=== PATIENT | male | born 1935 | race Caucasian/White ===

== ENCOUNTER 2018-05-16 13:36 | Emergency (ER) | payer OTHER ==
[~2018-05-16] VITALS: Ht 185.4 cm; Wt 104.3 kg
[~2018-05-16 13:36] MED LIST: ASPI-1153 PO; ATOR40TA68 PO; CARV25TA55 PO; CHOL20009 PO; CYAN250010 PO; HYDR-3698 PO; LEVO137T20 PO; LISI-217 PO; TAMS-11 PO; WARF5TAB2 PO
[2018-05-16 13:46] VITALS: BP_SYST 135
[2018-05-16 15:32] LABS: BASOPHILS # (AUTO) 0.1 K/uL (0.0-0.2); BASOPHILS % (AUTO) 1.1 % (0.0-2.0); EOSINOPHILS # (AUTO) 0.2 K/uL (0.0-0.4); EOSINOPHILS % (AUTO) 3.3 % (0.0-4.0); HEMATOCRIT 36.9 % (36-54); LYMPHOCYTES # (AUTO) 1.2 K/uL (1.0-5.5); LYMPHOCYTES % (AUTO) 16.7 % (20.5-51.5); MEAN CORPUSCULAR HEMOGLOBIN 32 pg (27-31); MEAN CORPUSCULAR HGB CONC 33 % (32-36); MEAN CORPUSCULAR VOLUME 99 fL (79.0-98.0); MONOCYTES # (AUTO) 0.7 K/uL (0.0-1.0); MONOCYTES % (AUTO) 9.7 % (1.7-9.3); NEUTROPHILS # (AUTO) 4.9 K/uL (1.8-7.7); NEUTROPHILS % (AUTO) 69.2 % (40.0-70.0); PLATELET COUNT (AUTO) 250 K/uL (130-430); RED BLOOD CELL COUNT(AUTO) 3.72 MIL/uL (4.2-6.2); RED CELL DISTRIBUTION WIDTH 13.6 % (9.0-15.0); WHITE BLOOD COUNT (AUTO) 7.1 K/uL (4.8-10.8)
[2018-05-16 15:39] LABS: ANION GAP 4 (5-15); CALCIUM 9.5 mg/dL (8.4-11.0); CHLORIDE 109 mmol/L (98-107); CREATININE 1.65 mg/dL (0.55-1.30); GLUCOSE 83 mg/dL (70-99); POTASSIUM 4.1 mmol/L (3.5-5.1); SODIUM SERUM 143 mmol/L (136-145); UREA NITROGEN, BLOOD 32 mg/dL (8-21)
[2018-05-16 15:41] LABS: PROTHROMBIN TIME 10.4 SECS (9.5-12.5)
[2018-05-16 15:44] LABS: ALANINE AMINOTRANSFERASE 25 U/L (12-78); ALBUMIN 3.4 g/dL (3.4-4.8); ASPARTATE AMINOTRANSFERASE 19 U/L (10-37); TOTAL BILIRUBIN 0.4 mg/dL (0.0-1.0)
[2018-05-16 17:16] VITALS: BP_SYST 147
== END 2018-05-16 17:16 | disposition home or self-care (01) ==
LOC: SED 13:36
DX: L03.116 Cellulitis of left lower limb (principal); R60.9 Edema, unspecified
CPT/HCPCS: 36415; 36600; 80053; 82803-TC; 83880; 85025; 85379; 85610-TC; 93971; 99285

== ENCOUNTER 2022-04-04 10:31 | Observation (INO) | payer OTHER ==
[~2022-04-04] VITALS: Ht 182.9 cm; Wt 108.9 kg
[~2022-04-04 10:31] MED LIST changes: -ASPI-1153 PO; +ASPI-1393 PO
[2022-04-04 10:38] VITALS: BP_SYST 126
--- NOTE | 2022-04-04 11:14 | NUR ---
RECEIVED PT FROM BRIAN WILLIAMSON. PT HAS BLE EDEMA X10 DAYS. RESP E/U. ON R/A. NO COUGH OR SOB NOTED. LUNG SOUNDS DIMINISHED BILATERALLY. 02 SAT 96%. DENIES C/P, PRESSURE, PALPITATIONS. ABDOMEN SOFT, NONTENDER, NONDISTENDED. DENIES N/V/D/C. DISTAL PULSES NORMAL, BLE 2+ EDEMA NOTED. SKIN WARM, INTACT. SIDERAILS UP X2.
[2022-04-04] MEDS ORDERED: FUROSEMIDE 100 MG/10 ML VIAL IVP ONE (11:30)
--- NOTE | 2022-04-04 12:00 | NUR ---
IV CATH INITIATED TO [facility]. LABS OBTAINED.
[2022-04-04 12:04] LABS: BASOPHILS # (AUTO) 0.1 K/uL (0.0-0.2); BASOPHILS % (AUTO) 0.8 % (0.0-2.0); EOSINOPHILS # (AUTO) 0.2 K/uL (0.0-0.4); EOSINOPHILS % (AUTO) 3.3 % (0.0-4.0); HEMATOCRIT 32.3 % (36-54); HEMOGLOBIN 11.1 g/dL (14.0-18.0); LYMPHOCYTES # (AUTO) 1.5 K/uL (1.0-5.5); LYMPHOCYTES % (AUTO) 21.3 % (20.5-51.5); MEAN CORPUSCULAR HEMOGLOBIN 31 pg (27-31); MEAN CORPUSCULAR HGB CONC 34 % (32-36); MEAN CORPUSCULAR VOLUME 91 fL (79.0-98.0); MONOCYTES # (AUTO) 0.7 K/uL (0.0-1.0); MONOCYTES % (AUTO) 9.7 % (1.7-9.3); NEUTROPHILS # (AUTO) 4.6 K/uL (1.8-7.7); NEUTROPHILS % (AUTO) 64.9 % (40.0-70.0); PLATELET COUNT (AUTO) 225 K/uL (130-430); RED BLOOD CELL COUNT(AUTO) 3.53 MIL/uL (4.2-6.2); RED CELL DISTRIBUTION WIDTH 13.9 % (9.0-15.0)
[2022-04-04 12:23] LABS: ANION GAP 9 (5-15); CALCIUM 9.2 mg/dL (8.4-11.0); CHLORIDE 100 mmol/L (98-107); CREATININE 1.71 mg/dL (0.55-1.30); GLUCOSE 137 mg/dL (70-99); POTASSIUM 3.9 mmol/L (3.5-5.1); SODIUM SERUM 136 mmol/L (136-145); UREA NITROGEN, BLOOD 25 mg/dL (8-21)
[2022-04-04 12:24] LABS: PROTHROMBIN TIME 10.6 SECS (9.5-12.5)
[2022-04-04] MEDS ORDERED: FINA5TAB3 PO (12:30)
[2022-04-04] MEDS ORDERED: SULF500T60 PO (12:30)
[2022-04-04] MEDS ORDERED: APRE30TA2 PO (12:30)
[2022-04-04] MEDS ORDERED: AMIO200T66 PO (12:30)
[2022-04-04] MEDS ORDERED: CARV12.548 PO (12:30)
[2022-04-04] MEDS ORDERED: FURO-150 PO (12:30)
[2022-04-04] MEDS ORDERED: APIX5TAB PO (12:30)
[2022-04-04] MEDS ORDERED: ALLO100T PO (12:30)
[2022-04-04] MEDS ORDERED: LISI-209 PO (12:30)
[2022-04-04 12:31] LABS: ALANINE AMINOTRANSFERASE 18 U/L (12-78); ALBUMIN 3.4 g/dL (3.4-4.8); ASPARTATE AMINOTRANSFERASE 20 U/L (10-37); TOTAL BILIRUBIN 0.2 mg/dL (0.0-1.0)
[2022-04-04] MEDS ORDERED: SYN75 PO (12:31)
--- NOTE | 2022-04-04 13:10 | NUR ---
COVID-19 DOM SWAB OBTAINED, LABELED AND SENT TO THE LAB.
--- NOTE | 2022-04-04 13:28 | NUR ---
Admit bed requested Patient will be admitted to care of . Admitted to TELE OBS unit. Diagnosis CHF Inpatient (Yes or No) N Observation (Yes or No) Y Orientation concerns or request close to nursing station (Yes or No) NO Covid Status PENDING On vent or bipap N Isolation requirements N Needs a sitter N From Home (Yes or if No enter name of facility) Y Requires Dialysis (Yes or No) N Med Rec Completed (Yes of No) Y
[2022-04-04] MEDS ORDERED: cefTRIAXone 1 GM IVPB PREMIX 50 ML IV ONE (13:30)
--- NOTE | 2022-04-04 16:09 | NUR ---
CONSULTATION PAGED REASON FOR CONSULTATION:CONGESTIVE HEART FAILURE WAS CONSULT CALLED?Y -PERSON WHO WAS NOTIFIED:BETO CONSULTING PHYSICIAN:AYDE ZARCO [employer] SPECIALTY:CARDIO [employer] PHONE NUMBER:[phone] REQUESTING PHYSICIAN:ELEAZAR GEORGE
--- NOTE | 2022-04-04 16:10 | NUR ---
Patient will be admitted to care of BRIAN MELISSA. Admitted to TELE unit. Will go to room 129B. Belongings list completed. Complete and up to date summary report printed. SBAR report to be given at bedside with opportunity for questions.
[2022-04-04 16:14] VITALS: BP_SYST 136
[2022-04-04 20:00] VITALS: BP_SYST 101
[2022-04-04] MEDS: APIXABAN 2.5 MG TABLET PO SCH (20:50)
[2022-04-04] MEDS: FUROSEMIDE 20 MG TABLET PO SCH (20:52)
[2022-04-04] MEDS: CARVEDILOL 12.5 MG TABLET (COREG) PO SCH (20:55)
[2022-04-05 00:40] VITALS: BP_SYST 133
[2022-04-05 06:35] LABS: BASOPHILS # (AUTO) 0.1 K/uL (0.0-0.2); EOSINOPHILS # (AUTO) 0.2 K/uL (0.0-0.4); EOSINOPHILS % (AUTO) 3.3 % (0.0-4.0); HEMATOCRIT 33.5 % (36-54); HEMOGLOBIN 11.6 g/dL (14.0-18.0); LYMPHOCYTES # (AUTO) 1.6 K/uL (1.0-5.5); LYMPHOCYTES % (AUTO) 22.5 % (20.5-51.5); MEAN CORPUSCULAR HEMOGLOBIN 32 pg (27-31); MEAN CORPUSCULAR HGB CONC 35 % (32-36); MEAN CORPUSCULAR VOLUME 92 fL (79.0-98.0); MONOCYTES # (AUTO) 0.7 K/uL (0.0-1.0); MONOCYTES % (AUTO) 10.4 % (1.7-9.3); NEUTROPHILS # (AUTO) 4.5 K/uL (1.8-7.7); NEUTROPHILS % (AUTO) 62.8 % (40.0-70.0); PLATELET COUNT (AUTO) 208 K/uL (130-430); RED BLOOD CELL COUNT(AUTO) 3.65 MIL/uL (4.2-6.2); WHITE BLOOD COUNT (AUTO) 7.1 K/uL (4.8-10.8)
[2022-04-05 06:42] LABS: ANION GAP 7 (5-15); CALCIUM 8.8 mg/dL (8.4-11.0); CHLORIDE 101 mmol/L (98-107); CREATININE 1.77 mg/dL (0.55-1.30); GLUCOSE 106 mg/dL (70-99); POTASSIUM 3.6 mmol/L (3.5-5.1); SODIUM SERUM 137 mmol/L (136-145); UREA NITROGEN, BLOOD 28 mg/dL (8-21)
[2022-04-05 06:57] LABS: ALANINE AMINOTRANSFERASE 18 U/L (12-78); ALBUMIN 3.2 g/dL (3.4-4.8); ASPARTATE AMINOTRANSFERASE 18 U/L (10-37); THYROID STIMULATING HORMONE 1.33 uIu/mL (0.36-3.74); TOTAL BILIRUBIN 0.3 mg/dL (0.0-1.0)
[2022-04-05] MEDS ORDERED: LEVOTHYROXINE SODIUM 0.112 MG TABLET PO SCH (07:00)
--- NOTE | 2022-04-05 07:15 | NUR ---
OPENING NOTE RECEIVED SBAR FROM NIGHT RN, PATIENT IN BED, RESPIRATIONS EVEN, NON LABORED BED IN LOW AND LOCKED POSITION CALL LIGHT WITHIN REACH, BED ALARM ON.
[2022-04-05 08:00] VITALS: BP_SYST 132
[2022-04-05] MEDS ORDERED: AMIODARONE HCL 200 MG TABLET PO SCH (09:00)
[2022-04-05] MEDS ORDERED: lisinopriL 5 MG TABLET PO SCH (09:00)
[2022-04-05] MEDS ORDERED: ATORVASTATIN 20 MG TABLET PO SCH (09:00)
[2022-04-05] MEDS ORDERED: TAMSULOSIN HCL 0.4 MG CAP PO SCH (09:00)
[2022-04-05] MEDS ORDERED: ALLOPURINOL 100 MG TABLET (ZYLOPRIM) PO SCH (09:00)
[2022-04-05] MEDS ORDERED: ASPIRIN 81 MG TABLET(ECOTRIN) PO SCH (09:00)
[2022-04-05] MEDS ORDERED: FINASTERIDE 5 MG TABLET (PROSCAR) PO SCH (09:00)
[2022-04-05] MEDS: FUROSEMIDE 20 MG TABLET PO SCH (09:35)
[2022-04-05] MEDS: CARVEDILOL 12.5 MG TABLET (COREG) PO SCH (09:36)
[2022-04-05] MEDS: APIXABAN 2.5 MG TABLET PO SCH (09:39)
[2022-04-05 12:28] VITALS: BP_SYST 132
[2022-04-05 12:46] LABS: CHOLESTEROL 148 mg/dL (<200); HDL CHOLESTEROL 48 mg/dL (>45); LDL CHOLESTEROL 82 mg/dL (<100); TRIGLYCERIDES 105 mg/dL (30-150)
[2022-04-05 14:56] VITALS: BP_SYST 132
--- NOTE | 2022-04-05 15:37 | NUR ---
D/C Patient Patient given medication reconciliation form and D/C instructions. Exit Care provided. Patient verbalized understanding. MD discussed with patient the results and treatment provided. Ambulatory with steady gait for discharge to home. Patient in stable condition, ID band removed. IV catheter removed, intact and dressing applied, no active bleeding. Patient educated on pain management and the importance of weighing self daily. All belongings sent with patient. Patient taken via wheelchair to awaiting car.
--- NOTE | 2022-04-16 16:51 | NUR ---
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
== END 2022-04-05 15:37 | disposition home or self-care (01) ==
LOC: SED 10:31 → STU 12:47
PROVIDERS: ADMIT Internal Medicine; ATTEND Internal Medicine
DX: R60.0 Localized edema (principal); Z20.822 Contact with and (suspected) exposure to COVID-19; I13.0 Hypertensive heart and chronic kidney disease with heart failure and stage 1 through stage 4 chronic kidney disease, or unspecified chronic kidney disease; E11.22 Type 2 diabetes mellitus with diabetic chronic kidney disease; I50.9 Heart failure, unspecified; N18.30 Chronic kidney disease, stage 3 unspecified; E03.9 Hypothyroidism, unspecified; I48.0 Paroxysmal atrial fibrillation; N40.0 Benign prostatic hyperplasia without lower urinary tract symptoms; E78.5 Hyperlipidemia, unspecified; J18.9 Pneumonia, unspecified organism; I25.10 Atherosclerotic heart disease of native coronary artery without angina pectoris; M15.9 Polyosteoarthritis, unspecified; Z28.310 Unvaccinated for COVID-19; Z79.01 Long term (current) use of anticoagulants; Z88.0 Allergy status to penicillin; Z87.891 Personal history of nicotine dependence; Z79.899 Other long term (current) drug therapy
CPT/HCPCS: 96365; 96375; 80053 ×2; 82550; 83880; 85025 ×2; 85610; 87040; 84484 ×2; 36415 ×2; 93005 ×2; 71045; 99285; 96368; 83605; 87426; 80061; 83735; 84443; 93306; J0696; J1940; J1956; G0378 ×2

== ENCOUNTER 2022-10-14 09:34 | Emergency (ER) | payer OTHER ==
[~2022-10-14] VITALS: Ht 182.9 cm; Wt 108.9 kg
[~2022-10-14 09:34] MED LIST changes: +ALLO100T PO; +AMIO200T66 PO; +APIX5TAB PO; +APRE30TA4 PO; +CARV12.548 PO; -CARV25TA55 PO; +FINA5TAB3 PO; +FURO-150 PO; -HYDR-3698 PO; -LEVO137T20 PO; +LISI-209 PO; -LISI-217 PO; +SULF500T60 PO; +SYN75 PO; -WARF5TAB2 PO
[2022-10-14 09:40] VITALS: BP_SYST 132
[2022-10-14 11:17] LABS: BASOPHILS # (AUTO) 0.1 K/uL (0.0-0.2); BASOPHILS % (AUTO) 0.8 % (0.0-2.0); EOSINOPHILS # (AUTO) 0.2 K/uL (0.0-0.4); HEMATOCRIT 38.1 % (36-54); HEMOGLOBIN 12.8 g/dL (14.0-18.0); LYMPHOCYTES # (AUTO) 1.9 K/uL (1.0-5.5); LYMPHOCYTES % (AUTO) 22.4 % (20.5-51.5); MEAN CORPUSCULAR HEMOGLOBIN 31 pg (27-31); MEAN CORPUSCULAR HGB CONC 34 % (32-36); MEAN CORPUSCULAR VOLUME 94 fL (79.0-98.0); MONOCYTES # (AUTO) 0.8 K/uL (0.0-1.0); MONOCYTES % (AUTO) 9.8 % (1.7-9.3); NEUTROPHILS # (AUTO) 5.4 K/uL (1.8-7.7); PLATELET COUNT (AUTO) 236 K/uL (130-430); RED BLOOD CELL COUNT(AUTO) 4.06 MIL/uL (4.2-6.2); RED CELL DISTRIBUTION WIDTH 14.1 % (9.0-15.0); WHITE BLOOD COUNT (AUTO) 8.3 K/uL (4.8-10.8)
[2022-10-14 11:21] LABS: ANION GAP 12 (5-15); CALCIUM 9.3 mg/dL (8.4-11.0); CHLORIDE 100 mmol/L (98-107); CREATININE 1.72 mg/dL (0.55-1.30); GLUCOSE 132 mg/dL (70-99); UREA NITROGEN, BLOOD 32 mg/dL (8-21)
[2022-10-14 11:26] LABS: ALANINE AMINOTRANSFERASE 32 U/L (12-78); ALBUMIN 3.8 g/dL (3.4-4.8); AMYLASE 126 U/L (0-100); ASPARTATE AMINOTRANSFERASE 22 U/L (10-37); C-REACTIVE PROTEIN QUANT < 0.2 mg/dL (0-0.5); LIPASE 318 U/L (73-393); TOTAL BILIRUBIN 0.5 mg/dL (0.0-1.0)
[2022-10-14 11:36] LABS: ACETONE, SERUM NEGATIVE (NEGATIVE)
[2022-10-14] MEDS ORDERED: SODIUM PHOSPHATE,MONO-DIBASIC 133 ML ENEMA RC ONE (13:15)
[2022-10-14] MEDS ORDERED: FLEETMO RC (13:16)
[2022-10-14] MEDS ORDERED: MAGN296S8 PO (13:16)
== END 2022-10-14 13:47 | disposition home or self-care (01) ==
LOC: SED 09:34
DX: K59.00 Constipation, unspecified (principal); R10.30 Lower abdominal pain, unspecified; E11.9 Type 2 diabetes mellitus without complications; I10 Essential (primary) hypertension; Z88.0 Allergy status to penicillin; Z91.041 Radiographic dye allergy status; Z79.899 Other long term (current) drug therapy
CPT/HCPCS: 36415; 76376; 80053; 82009; 82150; 83605; 83690; 85025; 86140; 99284

== ENCOUNTER 2024-04-22 17:21 | Emergency (ER) | payer OTHER, MEDICAID ==
[~2024-04-22] VITALS: Ht 182.9 cm; Wt 108.9 kg
[2024-04-22 17:21] VITALS: BP_SYST 160; PULSE 91; RESP 19; TEMP 97.4; O2SAT 97
[~2024-04-22 17:21] MED LIST changes: +FINA-37 PO; -FINA5TAB3 PO; +FLEETMO RC; +MAGN296S8 PO
[2024-04-22 18:48] LABS: BASOPHILS # (AUTO) 0.1 K/uL (0.0-0.2); BASOPHILS % (AUTO) 1.2 % (0.0-2.0); EOSINOPHILS # (AUTO) 0.2 K/uL (0.0-0.4); EOSINOPHILS % (AUTO) 2.6 % (0.0-4.0); HEMATOCRIT 32.4 % (36-54); HEMOGLOBIN 11.3 g/dL (14.0-18.0); LYMPHOCYTES # (AUTO) 2.3 K/uL (1.0-5.5); LYMPHOCYTES % (AUTO) 27.6 % (20.5-51.5); MEAN CORPUSCULAR HEMOGLOBIN 32 pg (27-31); MEAN CORPUSCULAR HGB CONC 35 % (32-36); MEAN CORPUSCULAR VOLUME 93 fL (79.0-98.0); MONOCYTES # (AUTO) 0.8 K/uL (0.0-1.0); NEUTROPHILS # (AUTO) 4.8 K/uL (1.8-7.7); NEUTROPHILS % (AUTO) 58.6 % (40.0-70.0); PLATELET COUNT (AUTO) 243 K/uL (130-430); RED BLOOD CELL COUNT(AUTO) 3.49 MIL/uL (4.2-6.2); WHITE BLOOD COUNT (AUTO) 8.2 K/uL (4.8-10.8)
[2024-04-22 19:04] LABS: PROTHROMBIN TIME 10.7 SECS (9.5-12.5)
[2024-04-22 19:17] LABS: ANION GAP 10 (5-15); CALCIUM 9.1 mg/dL (8.4-11.0); CARBON DIOXIDE 26 mmol/L (23-29); CHLORIDE 105 mmol/L (98-107); CREATININE 2.02 mg/dL (0.55-1.30); GLUCOSE 107 mg/dL (74-106); SODIUM SERUM 141 mmol/L (136-145); UREA NITROGEN, BLOOD 30 mg/dL (8-21)
[2024-04-22 19:23] LABS: ALCOHOL, BLOOD < 3 mg/dL (<10)
[2024-04-22 21:15] LABS: BILIRUBIN,URINE NEGATIVE (NEGATIVE); BLOOD, URINE NEGATIVE (NEGATIVE); CLARITY/URINE CLEAR (CLEAR); COLOR,URINE YELLOW (YELLOW); GLUCOSE,URINE NEGATIVE (NEGATIVE); KETONES,URINE NEGATIVE (NEGATIVE); LEUKOCYTE ESTERASE ,URINE NEGATIVE (NEGATIVE); NITRITE, URINE NEGATIVE (NEGATIVE); PROTEIN URINE NEGATIVE (NEGATIVE); UROBILINOGEN,URINE 0.2 (0.2-1.0)
[2024-04-22 21:52] LABS: BARBITURATE, URINE NEGATIVE (NEG <=200); BENZODIAZEPINE, URINE NEGATIVE (NEG <=150); CANNABINOID, URINE NEGATIVE (NEG <=50); COCAINE, URINE NEGATIVE (NEG <=150); METHAMPHETAMINES SCREEN,URINE NEGATIVE (NEG <=500); OPIATE, URINE NEGATIVE (NEG <=100); PHENCYCLIDINE SCREEN,URINE NEGATIVE (NEG <=25); UR TRICYCLIC ANTIDEPRESSANTS NEGATIVE (NEG <=300); URINE AMPHETAMINE NEGATIVE (NEG <=500); URINE METHADONE NEGATIVE (NEG <=200); URINE OXYCODONE SCREEN NEGATIVE (NEG <=100)
[2024-04-22] MEDS ORDERED: MECL-225 PO (22:07)
[2024-04-23] MEDS: NACL 0.9% 1,000 ML IV ONE (00:53)
[2024-04-23] MEDS ORDERED: MECLIZINE HCL 25 MG TABLET (ANITVERT) ONE (01:05)
[2024-04-23] MEDS: MECLIZINE HCL 25 MG TABLET (ANITVERT) PO ONE (01:06)
[2024-04-23 01:45] VITALS: BP_SYST 132; PULSE 77; RESP 16; TEMP 97.6; O2SAT 97
== END 2024-04-23 01:45 | disposition home or self-care (01) ==
LOC: SED 17:21
DX: R42 Dizziness and giddiness (principal); R51.9 Headache, unspecified; R53.1 Weakness; R07.89 Other chest pain; I13.0 Hypertensive heart and chronic kidney disease with heart failure and stage 1 through stage 4 chronic kidney disease, or unspecified chronic kidney disease; E11.22 Type 2 diabetes mellitus with diabetic chronic kidney disease; N18.30 Chronic kidney disease, stage 3 unspecified; I50.9 Heart failure, unspecified; E78.5 Hyperlipidemia, unspecified; Z91.041 Radiographic dye allergy status; Z88.0 Allergy status to penicillin; Z79.899 Other long term (current) drug therapy; Z79.2 Long term (current) use of antibiotics; Z79.82 Long term (current) use of aspirin
CPT/HCPCS: 99285; 70450; 71045; 80307; 80048; 81001; 85025; 85610; 85730; 84484; 36415; 93005; 82948; 81003; 96360; G0482; J7030; J8597